=== PATIENT | male | born 1935 | race Caucasian/White ===

== ENCOUNTER 2016-11-29 11:55 | Day surgery (SDC) | payer MEDICARE, OTHER ==
[~2016-11-29] VITALS: Ht 177.8 cm; Wt 86.4 kg
== END 2016-11-29 16:15 | disposition home or self-care (01) ==
LOC: RAD.S 11:55 → EDSTATUS 14:00 → RAD.S 14:00
PROC: 0PU43JZ Supplement Thoracic Vertebra with Synthetic Substitute, Percutaneous Approach (ICD-10-PCS; principal; 2016-11-29)
PROC: 0PS43ZZ Reposition Thoracic Vertebra, Percutaneous Approach (ICD-10-PCS; principal; 2016-11-29)
DX: M48.54XA Collapsed vertebra, not elsewhere classified, thoracic region, initial encounter for fracture (principal); Z79.899 Other long term (current) drug therapy; Z79.82 Long term (current) use of aspirin